=== PATIENT | female | born 1995 | race Caucasian/White ===

== ENCOUNTER 2018-05-01 08:35 | Emergency (ER) | payer MEDICAID, OTHER ==
[2018-05-01 08:42] VITALS: BP 111/76; PULSE 90; RESP 16; TEMP 97.8
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
== END 2018-05-01 09:22 | disposition home or self-care (01) ==
LOC: EC 08:35
DX: S40.022A Contusion of left upper arm, initial encounter (principal); Z88.0 Allergy status to penicillin; Z88.2 Allergy status to sulfonamides; Y04.1XXA Assault by human bite, initial encounter; Y92.69 Other specified industrial and construction area as the place of occurrence of the external cause; Y99.0 Civilian activity done for income or pay
CPT/HCPCS: 99283

== ENCOUNTER → 2019-02-19 | Outpatient (CLI) | payer MEDICAID ==
--- NOTE | 2019-02-19 13:39 | US ---
EXAMINATION TYPE: US pelvic complete DATE OF EXAM: 02/19/2019 COMPARISON: NONE CLINICAL HISTORY: Z97.[address] IUD placement TECHNIQUE: Transabdominal (TA). Transabdominal sonographic images of the pelvis were acquired. EXAM MEASUREMENTS: Uterus: 10.0 x 3.4 x 5.0 cm Endometrial Stripe: 0.4 cm Right Ovary: 2.7 x 2.8 x 1.7 cm Left Ovary: 3.8 x 3.2 x 2.1 cm 1. Uterus: Anteverted wnl 2. Endometrium: wnl 3. Right Ovary: wnl 4. Left Ovary: wnl 5. Bilateral Adnexa: wnl 6. Posterior cul-de-sac: wnl IUD appears to be in place centrally within the lower upper uterine segments. IMPRESSION: Centrally located intrauterine device within the endometrium bridging the lower and upper uterine segments.
== END | disposition home or self-care (01) ==
LOC: RADUSWWP 12:50
PROVIDERS: ATTEND Obstetrics & Gynecology
DX: Z51.89 Encounter for other specified aftercare (principal); Z97.5 Presence of (intrauterine) contraceptive device
CPT/HCPCS: 76856

== ENCOUNTER → 2020-05-19 | Outpatient (CLI) | payer SELFPAY | END | disposition home or self-care (01) | LOC: LABWHC1 10:53 | PROVIDERS: ATTEND Pediatrics Pediatric Infectious Diseases | DX: Z03.818 Encounter for observation for suspected exposure to other biological agents ruled out (principal) | CPT/HCPCS: U0003; C9803 ==

== ENCOUNTER → 2020-05-24 | Outpatient (CLI) | payer SELFPAY | LOC: LABWHC1 13:10 | PROVIDERS: ATTEND Pediatrics Pediatric Infectious Diseases | DX: Z03.818 Encounter for observation for suspected exposure to other biological agents ruled out (principal) | CPT/HCPCS: U0003; C9803 ==

== ENCOUNTER → 2022-08-02 | Outpatient (CLI) | payer MEDICAID, OTHER | END | disposition home or self-care (01) | LOC: LABMAIN 07:42 | PROVIDERS: ATTEND Emergency Medicine | DX: Z20.822 Contact with and (suspected) exposure to COVID-19 (principal) | CPT/HCPCS: 87635 ==